=== PATIENT | male | born 1975 | race African-American/Black ===

== ENCOUNTER 2019-04-22 10:37 | Emergency (ER) | payer MEDICAID ==
[~2019-04-22] VITALS: Ht 167.6 cm; Wt 82.0 kg
[2019-04-22] MEDS ORDERED: DIAZEPAM 5 MG TABLET PO ONE (11:45)
[2019-04-22] MEDS ORDERED: KETOROLAC 60MG/2ML VIAL IM ONE (11:45)
[2019-04-22 11:51] VITALS: BP 144/90
== END 2019-04-22 12:13 | disposition home or self-care (01) ==
LOC: ER 10:37
DX: M54.30 Sciatica, unspecified side (principal); Y93.67 Activity, basketball
CPT/HCPCS: 99283; J1885